=== PATIENT | female | born 1965 | race Caucasian/White ===

== ENCOUNTER → 2022-05-14 14:12 | Outpatient (CLI) | payer BC, SELFPAY ==
--- NOTE | ~2022-05-14 | CT_ITS ---
EXAMINATION: CT sinus wo con DATE: 05/14/2022 14:26 INDICATION: Chronic sinusitis for 6 months. Headache. TECHNIQUE: Computed tomography (CT) of the paranasal sinuses was performed without contrast. Iterativ e reconstruction technique was employed. Exam dose: 282.66 mGy-cm total exam DLP. COMPARISON: None FINDINGS: There is rightward bowing of the nasal septum. There is prominent soft tissue swelling of t he middle and inferior nasal turbinates. The ostiomeatal units, paranasal sinuses and mastoid air cells are normally developed and aerated. IMPRESSION: Patent ostiomeatal units, paranasal sinuses and mastoid air cells Reviewed, dictated and finalized at [facility]. Reviewed, dictated and finalized at [facility].
== END ==
PROVIDERS: PCP Family Medicine; Visit Provider Allergy & Immunology
DX: J32.9 Chronic sinusitis, unspecified (principal)
CPT/HCPCS: 70486